=== PATIENT | male | born 1955 | race Caucasian/White ===

== ENCOUNTER → 2021-07-31 | Outpatient (CLI) | payer MEDICARE, BC | LOC: US 08:40 → MRI 09:30 | DX: H53.2 Diplopia (principal); G45.9 Transient cerebral ischemic attack, unspecified; I65.23 Occlusion and stenosis of bilateral carotid arteries; E04.1 Nontoxic single thyroid nodule | CPT/HCPCS: 36415; 70543; 70553; 82565; 93880; A9577 ==